=== PATIENT | female | born 2000 | race Caucasian/White ===

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

== ENCOUNTER 2021-04-14 03:55 | Inpatient (IN) | payer OTHER ==
[2021-04-14] MEDS ORDERED: MORPHINE 4 MG/1 ML INJ IV ONE (05:48)
[2021-04-14] MEDS ORDERED: LACTATED RINGERS 1,000 ML IV SCH (06:00)
--- NOTE | 2021-04-14 06:33 | Ultrasound Report ---
ULTRASOUND BIOPHYSICAL PROFILE INDICATION / CLINICAL INFORMATION: complete OB sonogram. COMPARISON: None available. FINDINGS: Single live intrauterine . MEASUREMENTS: - Biparietal Diameter = 8.6 cm = 34 weeks 6 days - Head Circumference = 31.3 cm = 35 weeks 0 days - Abdominal Circumference = 30.4 cm = 34 weeks 2 days - Femur Length = 6.6 cm = 34 weeks 1 day - Estimated Weight (in grams, if calculated): 242 BREATHING MOVEMENT = 2 GROSS BODY MOVEMENT = 2 TONE = 2 QUALITATIVE AMNIOTIC FLUID VOLUME = 2 TOTAL BIOPHYSICAL SCORE = 8/8 AMNIOTIC FLUID INDEX (cm) = 5.1 PRESENTATION: Cephalic. HEART RATE (beats per minute): 143 Additional findings: The anterior placenta is free of the os. No evidence of placental abruption. Cer vical os is closed. Cervix measures 2.9 cm. IMPRESSION: 1. Single live IUP in cephalic presentation. Ultrasound gestational age is 34 weeks and 3 days. 2. biophysical profile = 8/8 3. No significant abnormality. Signer Name: Tye Smallwood MD Signed: 04/14/2021 6:28 AM Workstation Name: [id number]
[2021-04-14 07:22] LABS: Basophils % (Auto) 0.2 % (0.0-1.8); Eosinophils % (Auto) 0.3 % (0.0-4.3); Hematocrit 33.1 % (30.3-42.9); Hemoglobin 11.1 gm/dl (10.1-14.3); Lymphocytes # (Auto) 0.9 K/mm3 (1.2-5.4); Lymphocytes % (Auto) 9.7 % (13.4-35.0); Mean Corpuscular HGB Conc 34 % (30-34); Mean Corpuscular Volume 71 fl (79-97); Monocytes # (Auto) 0.5 K/mm3 (0.0-0.8); Monocytes % (Auto) 5.4 % (0.0-7.3); Platelet Count 122 K/mm3 (140-440); Red Blood Count 4.68 M/mm3 (3.65-5.03); Red Cell Distribution Width 16.7 % (13.2-15.2)
[2021-04-14 07:48] LABS: Hepatitis C Virus Antibody Non-Reactive (NonReactive)
[2021-04-14] MEDS ORDERED: OXYTOCIN 10 UNIT/1 ML INJ IM PRN (09:05)
[2021-04-14] MEDS ORDERED: LOPERAMIDE 2 MG CAP PO PRN (09:05)
[2021-04-14] MEDS ORDERED: LIDOCAINE (2%) 20 MG/1 ML VIAL 20 ML MDV INFILTRATI NR (09:05)
[2021-04-14] MEDS ORDERED: METHYLERGONOVINE MALEATE 0.2 MG/ML VIAL IM PRN (09:05)
[2021-04-14] MEDS ORDERED: TERBUTALINE 1 MG/1 ML INJ SUB-Q NR (09:05)
[2021-04-14] MEDS ORDERED: AMPICILLIN/NS 2 GM/100 ML 2 GM/100 ML BAG IV ONE ×2 (09:05→13:37)
[2021-04-14] MEDS ORDERED: CARBOPROST TROMETHAMINE 250 MCG/1 ML INJ IM PRN (09:05)
[2021-04-14] MEDS ORDERED: miSOPROStol 200 MCG TAB PR PRN (09:05)
[2021-04-14] MEDS ORDERED: ePHEDrine SULFATE 50 MG/1 ML INJ IV PRN ×2 (09:30→18:29)
[2021-04-14] MEDS ORDERED: BUTORPHANOL 2 MG/1 ML INJ IV PRN (10:00)
[2021-04-14] MEDS ORDERED: BETAMET ACET/BETAMET NA PH 6 MG/ML INJ 5 ML MDV IM SCH (10:00)
[2021-04-14] MEDS ORDERED: ACETAMINOPHEN 325 MG TAB PO PRN ×2 (10:00→20:53)
[2021-04-14] MEDS ORDERED: OXYTOCIN DRIP 30 UNITS/500 ML BAG IV SCH ×3 (10:00→21:00)
[2021-04-14] MEDS: TERBUTALINE 1 MG/1 ML INJ SUB-Q PRN ×2 (10:21→13:42)
--- NOTE | 2021-04-14 11:32 | History and Physical Report ---
History of Present Illness Date of examination: 04/14/21 Date of admission: 04/14/21 04:41 Chief complaint: contractions History of present illness: 28-year-old -0-1-4 with unknown gestational age with reported LMP in late June, US today c/w 34w0d gestation, complicated by no care this , French speaking, and poor historian presenting with contractions found to be 3 to 4 cm. Patient reports going to other outside facilities throughout the , all different, with multiple due dates including March 26 per patient report. [facility] records for review. Past History Past Medical History: no pertinent history Past Surgical History: no surgical history Family/Genetic History: diabetes (father), heart disease (father) Social history: other (albanian speaking, living in hotel) - Obstetrical History : 6 Para: 4 Spontaneous Abortions: 1 Medications and Allergies Allergies Allergy/AdvReac Type Severity Reaction Status Date / Time No Known Allergies Allergy Verified 11/05/18 19:17 Home Medications Medication Instructions Recorded Confirmed Last Taken Type Ibuprofen [Motrin 600 MG tab] 600 mg PO Q6HR #40 tablet 11/07/18 Unknown Rx Vit-Fe Fumar-FA [ 1 each PO QDAY #60 tablet 11/07/18 Unknown Rx Vitamin] Active Meds: Active Medications Acetaminophen (Acetaminophen 325 Mg Tab) 650 mg PO Q4H PRN PRN Reason: Pain, Mild (1-3) Betamethasone Acet/Betameth SodPhos (Betamet Acet/Betamet Na Ph 6 Mg/Ml Inj 5 Ml Mdv) 12 mg IM Q24HR ALICIA Stop: 04/15/21 10:01 Butorphanol Tartrate (Butorphanol 2 Mg/1 Ml Inj) 1 mg IV Q2H PRN PRN Reason: Pain, Moderate(4-6) LABOR PAIN Last Admin: 04/14/21 10:19 Dose: 1 mg Documented by: Butorphanol Tartrate (Butorphanol 2 Mg/1 Ml Inj) 2 mg IV Q2H PRN PRN Reason: Pain , Severe (7-10) Carboprost Tromethamine (Carboprost Tromethamine 250 Mcg/1 Ml Inj) 250 mcg IM ONCE PRN PRN Reason: Uterine Bleeding Stop: 04/15/21 09:04 Ephedrine Sulfate (Ephedrine Sulfate 50 Mg/1 Ml Inj) 10 mg IV Q2M PRN PRN Reason: Hypotension Oxytocin/Sodium Chloride (Pitocin/Ns 30 Unit/500ml) 30 units in 500 mls @ 2 mls/hr IV TITR ALICIA; Protocol Lactated Ringer's (Lactated Ringers) 1,000 mls @ 125 mls/hr IV DIRECT ALICIA Oxytocin/Sodium Chloride (Pitocin/Ns 30 Unit/500ml) 30 units in 500 mls @ 40 mls/hr IV TITR ALICIA; Protocol Ampicillin Sodium (Ampicillin/Ns 1 Gm/50 Ml) 1 gm in 50 mls @ 100 mls/hr IV Q4H ALICIA; Protocol Lidocaine (Lidocaine (2%) 20 Mg/1 Ml Vial 20 Ml Mdv) 20 ml INFILTRATI ONCE NR Stop: 04/14/21 20:00 Loperamide HCl (Loperamide 2 Mg Cap) 2 mg PO ONCE PRN PRN Reason: give with Hemabate Stop: 04/15/21 09:04 Methylergonovine Maleate (Methylergonovine Maleate 0.2 Mg/Ml Vial) 0.2 mg IM ONCE PRN PRN Reason: Uterine Bleeding Stop: 04/15/21 20:00 Mineral Oil (Mineral Oil 30 Ml Oral Liqd) 30 ml PO QHS PRN PRN Reason: Constipation Misoprostol (Misoprostol 200 Mcg Tab) 800 mcg CA ONCE PRN PRN Reason: Uterine Bleeding Stop: 04/15/21 20:00 Oxytocin (Oxytocin 10 Unit/1 Ml Inj) 10 unit IM ONCE PRN PRN Reason: Uterine Bleeding Stop: 04/15/21 20:00 Review of Systems All systems: negative (except HPI) - Vital Signs Vital signs: Vital Signs Pulse Pulse Ox 107 H 97 04/14/21 04:18 04/14/21 04:18 Temp Pulse Resp BP Pulse Ox 98.8 F 86 18 123/74 94 04/14/21 04:20 04/14/21 08:52 04/14/21 06:54 04/14/21 04:40 04/14/21 08:52 - Physical Exam Cardiovascular: Regular rate Lungs: Positive: Clear to auscultation Abdomen: Positive: normal appearance, soft, normal bowel sounds Uterus: Positive: enlarged Extremities: Positive: normal - Obstetrical FHR: category 1 Uterine Contraction Monitor Mode: External Cervical Dilatation: 4 Uterine Contraction Pattern: Regular Results Result Diagrams: 04/14/21 06:51 Abnormal lab results 04/14/21 04/14/21 Range/Units 06:51 10:24 MCV 71 L (79-97) fl MCH 24 L (28-32) pg RDW 16.7 H (13.2-15.2) % Plt Count 122 L (140-440) K/mm3 Lymph % (Auto) 9.7 L (13.4-35.0) % Lymph # (Auto) 0.9 L (1.2-5.4) K/mm3 Seg Neutrophils % 84.4 H (40.0-70.0) % C-Reactive Protein 2.60 H (0.00-1.30) mg/dL All other labs normal. Assessment and Plan - Patient Problems (1) labor Current Visit: Yes Status: Acute Qualifiers: Fetus number: single or unspecified fetus Plan to address problem: Multigravid patient with no care presenting in early labor now 4 cm now with contractions that are spacing out on terbutaline. Ultrasound today consistent with a 34-week gestation. --Terbutaline x3 doses. IV hydration. --Obtain labs. --Continue to monitor for signs and symptoms of premature labor. --IV pain medication as indicated, patient declines epidural. --Ampicillin for GBS unknown --Steriods for lung maturity --Obtain urinalysis given reported history of urinary tract infection couple weeks ago at outside facility. --Anticipate if labors or otherwise indicated
[2021-04-14 12:21] LABS: Hematocrit 34.1 % (30.3-42.9); Mean Corpuscular HGB Conc 32 % (30-34); Mean Corpuscular Volume 72 fl (79-97); Platelet Count 119 K/mm3 (140-440); Red Blood Count 4.76 M/mm3 (3.65-5.03); Red Cell Distribution Width 16.6 % (13.2-15.2)
[2021-04-14] MEDS: BUTORPHANOL 2 MG/1 ML INJ IV PRN ×2 (13:20→15:52)
[2021-04-14] MEDS: LACTATED RINGERS 1,000 ML IV SCH ×3 (13:21→19:36)
[2021-04-14] MEDS ORDERED: AMPICILLIN/NS 1 GM/50 ML 1 GM/50 ML BAG IV SCH (14:00)
[2021-04-14] MEDS ORDERED: NALOXONE 2 MG/2 ML INJ IV PRN (18:29)
--- NOTE | 2021-04-14 18:31 | Anesthesia Consultation ---
Anesthesia Consult and Med Hx Date of service: 04/14/21 - Airway Anesthetic Teeth Evaluation: Poor ROM Head & Neck: Adequate Mental/Hyoid Distance: Adequate Mallampati Class: Class II Intubation Access Assessment: Probably Good - Pulmonary Exam CTA: Yes - Cardiac Exam Cardiac Exam: RRR - Pre-Operative Health Status ASA Pre-Surgery Classification: ASA2 Proposed Anesthetic Plan: Epidural - Pulmonary Hx Smoking: No Hx Asthma: No Hx Respiratory Symptoms: No SOB: No COPD: No Home Oxygen Therapy: No Hx Pneumonia: No Hx Sleep Apnea: No - Cardiovascular System Hx Hypertension: No Hx Coronary Artery Disease: No Hx Heart Attack/AMI: No Hx Angina: No Hx Percutaneous Transluminal Coronary Angioplasty (PTCA): No Hx Cardia Arrhythmia: No Hx Pacemaker: No Hx Internal Defibrillator: No Hx Valvular Heart Disease: No Hx Heart Murmur: No Hx Peripheral Vascular Disease: No - Central Nervous System Hx Neuromuscular Disorder: No Hx Seizures: No CVA: No Hx Back Pain: Yes Hx Psychiatric Problems: No - Gastrointestinal Hx Ulcer: No Hx Gastroesophageal Reflux Disease: Yes - Endocrine Hx Renal Disease: Yes (kidney infection) Hx End Stage Renal Disease: No Hx Cirrhosis: No Hx Liver Disease: No Hx Insulin Dependent Diabetes: No Hx Non-Insulin Dependent Diabetes: No Hx Thyroid Disease: No Hx Hypothyroidism: No Hx Hyperthyroidism: No - Hematic Hx Anemia: No Hx Sickle Cell Disease: No - Other Systems Hx Alcohol Use: No Hx Substance Use: No Hx Cancer: No Hx Obesity: Yes
[2021-04-14] MEDS ORDERED: fentaNYL-BUPIV 2 MCG/ML-0.125% 200 MCG/100 ML BAG EPIDURAL SCH (19:00)
--- NOTE | 2021-04-14 19:04 | Progress Note ---
Labor Epidural - Labor Epidural Start Time: 18:35 Stop Time: 18:48 Performed by:: YARELIS KIM Procedure: Patient is requesting a laboring epidural for laboring pain. Patient IDed, H&P reviewed, all questions and concerns were answered, and consent was signed. Timeout was performed at bedside. Patient in sitting position. Sterile prep and drape was performed. [3] ml of 1% lidocaine skin wheal at L[3]- L [4]. 18- gauge GlobeSherpatead epidural needle was advanced to loss of resistance with saline technique 6cm. Negative CSF negative blood. Epidural catheter advanced to [10] centimeters. [NEGATIVE] Aspiration [NEGATIVE] test dose. Sterile dressing applied. Patient tolerated procedure.
[2021-04-14] MEDS ORDERED: MAGNESIUM HYDROXIDE (MOM) ORAL LIQD UDC PO PRN (20:53)
[2021-04-14] MEDS ORDERED: PROMETHAZINE 25 MG TAB PO PRN (20:53)
[2021-04-14] MEDS ORDERED: ONDANSETRON 4 MG/2 ML INJ IV PRN (20:53)
[2021-04-14] MEDS ORDERED: LANOLIN/ZINC/DIMETHICONE (LANSINOH) 7 GM TP PRN (20:53)
[2021-04-14] MEDS ORDERED: PROMETHAZINE 25 MG RECT SUPP PR PRN (20:53)
[2021-04-14] MEDS ORDERED: WITCH HAZEL/ GLYCERIN PAD TP PRN (20:53)
[2021-04-14] MEDS ORDERED: diphenhydrAMINE 25 MG CAP PO PRN (20:53)
--- NOTE | 2021-04-14 20:59 | Procedure Note ---
OB Delivery Note - Delivery Date of Delivery: 04/14/21 Surgeon: KHRIS NICOLE JR Estimated blood loss: other (250cc) - Vaginal Delivery presentation: vertex Delivery position: OA Intrapartum events: labor-<37 weeks, other(please specify) (no PNC) Delivery induction: none Delivery augmentation: rupture of membranes Delivery monitor: external FHT, external uterine Route of delivery: Delivery placenta: spontaneous Delivery cord: nuchal cord Episiotomy: none Delivery laceration: none Anesthesia: intravenous, epidural Delivery comments: Status post spontaneous vaginal delivery of female infant at 2035. . Full-term, grossly. Weight 2760 g. EBL 250 cc improved with cytotec 800 mcg. Apgars 8/9. 20.5 inches. No lacerations noted on exam. Fundus firm. - Infant A at 1 minute: 8 at 5 minutes: 9 Infant Gender: Female
[2021-04-14] MEDS: oxyCODONE /ACETAMINOPHEN 5-325MG TAB PO PRN (21:48)
[2021-04-14] MEDS: IBUPROFEN 600 MG TAB PO SCH (21:48)
[2021-04-14] MEDS ORDERED: MINERAL OIL 30 ML ORAL LIQD PO PRN (22:00)
[2021-04-15] MEDS: oxyCODONE /ACETAMINOPHEN 5-325MG TAB PO PRN ×3 (02:15→20:53)
[2021-04-15 02:58] LABS: Amphetamine Screen,Urine Negative; Benzodiazepines Screen,Urine Negative; Cannabinoid Screen,Urine Negative; Cocaine Screen,Urine Negative; Methadone Screen,Urine Negative; Opiate Screen,Urine Negative
[2021-04-15 02:59] LABS: Bacteria,Urine 1+ /HPF (Negative); Bilirubin,Urine NEG (Negative); Blood,Urine LG (Negative); Color,Urine Red (Yellow); Mucus,Urine FEW /HPF; RBC,Urine > 182.0 /HPF (0.0-6.0); Urobilinogen,Urine < 2.0 mg/dL (<2.0)
[2021-04-15] MEDS: IBUPROFEN 600 MG TAB PO SCH ×3 (07:51→18:15)
--- NOTE | 2021-04-15 10:37 | Progress Note ---
Assessment and Plan A:S/P P: Continue routine pp care D/C home in am if stable Subjective - Subjective Date of service: 04/15/21 Patient reports: appetite normal, voiding normally, pain well controlled, ambulating normally [place]: in NICU Objective - Vital Signs Latest vital signs: Vital Signs Temp Pulse Resp BP BP Pulse Ox Pulse Ox 04/15/21 07:40 98.1 F 84 20 101/63 97 04/15/21 05:40 98.3 F 78 18 114/83 97 04/15/21 00:00 98.8 F 86 20 106/69 100 97 04/14/21 23:44 99 H 102/66 04/14/21 23:33 93 H 100/63 04/14/21 23:18 87 104/65 04/14/21 23:03 80 109/74 04/14/21 22:49 93 H 112/68 04/14/21 22:34 93 H 113/74 04/14/21 22:32 85 110/73 04/14/21 22:18 76 106/69 04/14/21 22:03 82 110/71 04/14/21 21:55 98.9 F 04/14/21 21:48 94 H 109/72 04/14/21 21:33 76 108/64 04/14/21 21:19 83 106/59 04/14/21 21:03 83 122/64 04/14/21 20:56 95 H 133/60 04/14/21 20:26 112 H 100 04/14/21 20:21 105 H 100 04/14/21 20:16 97 H 122/74 97 04/14/21 20:11 103 H 100 04/14/21 20:06 91 H 97 04/14/21 20:01 87 131/88 96 04/14/21 19:56 89 98 04/14/21 19:51 90 97 04/14/21 19:46 90 97 04/14/21 19:43 97 H 116/93 04/14/21 19:41 100 H 97 04/14/21 19:38 98 H 112/85 97 04/14/21 19:36 104 H 99 04/14/21 19:34 99 H 114/73 04/14/21 19:33 99.9 F H 16 98 04/14/21 19:31 91 H 96 04/14/21 19:27 101 H 123/79 04/14/21 19:26 111 H 99 04/14/21 19:23 96 H 119/75 04/14/21 19:20 90 98 04/14/21 19:18 85 120/75 04/14/21 19:16 85 98 04/14/21 19:13 89 116/74 04/14/21 19:11 94 H 99 04/14/21 19:08 97 H 119/74 04/14/21 19:06 101 H 99 04/14/21 19:03 97 H 119/75 04/14/21 19:01 108 H 99 04/14/21 18:59 109 H 120/75 04/14/21 18:56 102 H 99 04/14/21 18:53 104 H 132/84 04/14/21 18:51 107 H 98 04/14/21 18:48 117 H 131/84 04/14/21 18:46 110 H 100 04/14/21 18:43 121 H 126/83 04/14/21 18:41 115 H 99 04/14/21 18:39 131 H 148/97 04/14/21 18:36 112 H 98 04/14/21 18:31 117 H 141/91 99 04/14/21 18:26 111 H 96 04/14/21 18:21 109 H 97 04/14/21 18:16 107 H 97 04/14/21 18:11 106 H 98 04/14/21 18:06 108 H 100 04/14/21 18:01 126 H 97 04/14/21 17:56 118 H 100 04/14/21 17:51 126 H 97 04/14/21 17:46 111 H 94 04/14/21 17:41 109 H 98 04/14/21 17:36 98 H 95 04/14/21 17:31 102 H 97 04/14/21 17:26 102 H 98 04/14/21 17:16 91 H 94 04/14/21 17:15 114 H 99 04/14/21 17:10 99 H 97 04/14/21 17:09 100 H 94 04/14/21 17:05 101 H 96 04/14/21 17:00 108 H 98 04/14/21 16:55 98 H 92 04/14/21 16:50 102 H 95 04/14/21 16:48 96 H 94 04/14/21 16:45 107 H 92 04/14/21 16:40 106 H 88 04/14/21 16:35 95 H 92 04/14/21 16:34 96 H 92 04/14/21 16:33 117 H 141/91 04/14/21 16:30 110 H 94 04/14/21 16:28 98 H 94 04/14/21 16:25 101 H 94 04/14/21 16:23 102 H 94 04/14/21 16:20 98 H 96 04/14/21 16:18 117 H 94 04/14/21 16:14 102 H 97 04/14/21 16:10 106 H 94 04/14/21 16:05 99 H 94 04/14/21 16:00 107 H 94 04/14/21 15:59 102 H 94 04/14/21 15:55 115 H 95 04/14/21 15:50 115 H 98 04/14/21 15:40 115 H 96 04/14/21 15:39 114 H 94 04/14/21 15:35 145 H 99 04/14/21 15:30 105 H 98 04/14/21 15:25 137 H 98 04/14/21 15:22 125 H 94 04/14/21 15:20 115 H 98 04/14/21 15:15 136 H 97 04/14/21 15:10 121 H 98 04/14/21 15:05 117 H 98 04/14/21 15:00 102 H 97 04/14/21 14:55 107 H 97 04/14/21 14:50 114 H 98 04/14/21 14:45 108 H 96 04/14/21 14:40 112 H 96 04/14/21 14:35 113 H 97 04/14/21 14:30 109 H 95 04/14/21 14:25 111 H 96 04/14/21 14:20 114 H 95 04/14/21 14:15 121 H 97 04/14/21 14:10 119 H 96 04/14/21 14:05 117 H 96 04/14/21 14:00 111 H 97 04/14/21 13:55 110 H 96 04/14/21 13:50 86 97 04/14/21 13:45 91 H 96 04/14/21 13:40 112 H 97 04/14/21 13:35 75 94 04/14/21 13:30 90 94 04/14/21 13:25 84 91 04/14/21 12:30 106 H 110/78 Intake and Output 04/14/21 04/15/21 04/15/21 22:59 06:59 14:59 Intake Total 675 120 240 Output Total 550 1500 600 Balance 125 -1380 -360 Intake: IV 675 Lactated Ringers 1,000 ml 675 @ 125 mls/hr IV DIRECT ALICIA Rx#:[id number] Oral 120 240 Output: Urine 550 1500 600 Uretheral ([employer]) 550 Void 1500 600 Other: Total, Intake Amount 120 240 Total, Output Amount 700 600 # Voids Void 2 Estimated Blood Loss 250 - Exam Breasts: Present: normal Abdomen: Present: normal appearance, soft, normal bowel sounds Vulva: both: normal Uterus: Present: normal, firm, fundal height below umbilicus Extremities: Present: normal - Labs Labs: Abnormal lab results 04/14/21 04/14/21 04/14/21 Range/Units 02:15 10:24 10:24 MCV 72 L (79-97) fl MCH 23 L (28-32) pg RDW 16.6 H (13.2-15.2) % Plt Count 119 L (140-440) K/mm3 C-Reactive Protein 2.60 H (0.00-1.30) mg/dL Urine WBC (Auto) 72.0 H (0.0-6.0) /HPF
[2021-04-15 11:04] LABS: Hematocrit 30.9 % (30.3-42.9); Hemoglobin 10.2 gm/dl (10.1-14.3)
--- NOTE | 2021-04-15 19:28 | Post Anesthesia Evaluation ---
- Post Anesthesia Evaluation Patient Participated: Yes Airway Patent: Yes Stable Respiratory Function: Yes Nausea/Vomiting: No Temp > 96.8F: Yes Pain Manageable: Yes Adequeate Hydration: Yes Anesthesia Complications: No Block Receding Appropriately: Yes Patient on Ventilator: No
[2021-04-16] MEDS: IBUPROFEN 600 MG TAB PO SCH ×4 (06:05→19:32)
--- NOTE | 2021-04-16 08:25 | Discharge Summary ---
Providers - Providers Date of Admission: 04/14/21 04:41 Date of discharge: 04/16/21 Attending physician: ALISHA SIMMONS MD Primary care physician: WET ROOM SUPERVISOR Hospitalization Reason for admission: active labor, IUP at term Delivery: Episiotomy: none Laceration: none Other procedures: none complications: none Discharge diagnosis: IUP at term delivered [place] baby: female Hospital course: Pt was admitted to [facility] in active labor. She had a w/o pp complications. See H&P, delivery summary, and pp notes. Condition at discharge: Stable Disposition: 01 HOME / SELF CARE / HOMELESS Plan - Discharge Medications Prescriptions: Ibuprofen [Motrin 600 MG tab] 600 mg PO Q6H PRN #30 tablet PRN Reason: Menstrual Cramps - Provider Discharge Summary Activity: routine, no sex for 6 weeks, no heavy lifting 4 weeks, no strenuous exercise Diet: routine Instructions: routine Additional instructions: [] Smoking cessation referral if applicable(refer to patient education folder for contact #) [] Refer to [facility]'s [facility] Booklet Call your doctor immediately for: * Fever > 100.5 * Heavy vaginal bleeding ( >1 pad per hour) * Severe persistent headache * Shortness of breath * Reddened, hot, painful area to leg or breast * Drainage or odor from incision. * Keep incision clean and dry at all times and follow doctor's instructions regarding bathing/showering - Follow up plan Follow up: PRIMARY CARE, [Primary Care Provider] - 6 Weeks
[2021-04-16 09:50] VITALS: BP 126/83
== END 2021-04-16 20:11 | disposition home or self-care (01) | DRG 807 ==
LOC: TRG 03:55 → APU 04:03 → LD 04:41 → TRG 04:41 → LD 06:34 → OBSVTOIN 20:53 → OB 04-15
PROC: 10E0XZZ Delivery of Products of Conception, External Approach (ICD-10-PCS; principal; 2021-04-14)
PROC: 3E0R3BZ Introduction of Anesthetic Agent into Spinal Canal, Percutaneous Approach (ICD-10-PCS; 2021-04-14)
PROC: 00HU33Z Insertion of Infusion Device into Spinal Canal, Percutaneous Approach (ICD-10-PCS; 2021-04-14)
DX: O60.14X0 Preterm labor third trimester with preterm delivery third trimester, not applicable or unspecified (principal); Z37.0 Single live birth; O69.81X0 Labor and delivery complicated by cord around neck, without compression, not applicable or unspecified; Z3A.34 34 weeks gestation of pregnancy; Z20.822 Contact with and (suspected) exposure to COVID-19; O99.62 Diseases of the digestive system complicating childbirth; O99.214 Obesity complicating childbirth; K21.9 Gastro-esophageal reflux disease without esophagitis
CPT/HCPCS: 36415; 59025; 76805; 76816; 76819; 80307; 81001; 85014; 85018; 85025; 85027; 85461; 86140; 86592; 86706; 86762; 86803; 86850; 86900; 86901; 87086; 87116; 87806; 88307; 99211; G0378; G0463; J0290; J0595; J0702; J2270; J2590; J2790; J3105; J7120; U0003